=== PATIENT | female | born 1965 | race Caucasian/White ===

== ENCOUNTER 2018-10-10 20:43 | Emergency (ER) | payer SELFPAY ==
[~2018-10-10] VITALS: Ht 160 cm; Wt 61.4 kg
[2018-10-10] MEDS ORDERED: KETOROLAC TROMETHAMINE 30 MG/ML VIAL IM ONE (22:15)
[2018-10-11 00:02] VITALS: BP 131/78
== END 2018-10-11 01:13 | disposition home or self-care (01) ==
LOC: EMS 20:45
DX: S13.4XXA Sprain of ligaments of cervical spine, initial encounter (principal); S93.402A Sprain of unspecified ligament of left ankle, initial encounter; S20.212A Contusion of left front wall of thorax, initial encounter; V49.40XA Driver injured in collision with unspecified motor vehicles in traffic accident, initial encounter; Y93.89 Activity, other specified; Y92.89 Other specified places as the place of occurrence of the external cause; Y99.8 Other external cause status
CPT/HCPCS: 70450; 71045; 72125; 73610; 96372; 99284; J1885